=== PATIENT | male | born 1990 | race Caucasian/White ===

== ENCOUNTER 2019-02-10 08:52 | Day surgery (SDC) | payer OTHER ==
[2019-02-10] VITALS (12 sets, daily range): BP systolic 125–145; BP diastolic 66–86; PULSE 69–100; RESP 11–43; Ht 180.3 cm; Wt 78.1 kg
[~2019-02-10] VITALS: Ht 180.3 cm; Wt 78.1 kg
--- NOTE | 2019-02-10 13:36 | PREAC ---
Date/Time of Note Date/Time of Note DATE: 02/10/19 TIME: 13:35 Anesthesia Eval and Record Evaluation Time Pre-Procedure Interview DATE: 02/10/19 TIME: 13:35 Age 28 Sex male NPO: 8 hrs Preoperative diagnosis roght inguinal hernia Planned procedure lap r ingunal hernia repair with mesh Past Medical History Past Medical History: None Surgery & Anesthesia Issues No known issue Meds Anticoagulation: No Beta Janet within 24 hr: No Reason Beta Janet not given: Pt. not on B-Janet No Active Prescriptions or Reported Meds Meds reviewed: Yes Allergies Coded Allergies: No Known Allergy (Unverified , 02/10/19) Allergies Reviewed: Yes Labs/Studies Labs Reviewed: Reviewed by anesthesiologist test: N/A Studies: ECG, CXR (nl) Pre-procedure Exam Last vitals Vital Signs Date Temp Pulse Resp B/P (MAP) Pulse Ox O2 O2 Flow FiO2 Time Delivery Rate 02/10/19 98.6 69 16 133/86 100 Room Air 10:45 (102) Airway: Adequate mouth opening Mallampati: Mallampati I Teeth: Normal Lung: Normal Heart: Normal ASA Physical Status ASA physical status: 1 Emergency: None Planned Anesthetic General/MAC: ETT Nerve block: TAP (bilateral) Planned Pain Management Single shot nerve block, Parenteral pain med Pre-operative Attestations Prior to commencing anesthesia and surgery, the patient was re-evaluated, there was verification of: *The patient's identity *The results of appropriate recent lab work and preoperative vital signs *The above evaluation not changing prior to induction *Anesthetic plan, risk benefits, alternative and complications discussed with patient/family; questions answered; patient/family understands, accepts and wishes to proceed. EDUARDO FERNANDEZ MD Feb 10, 2019 13:36
[2019-02-10] MEDS ORDERED: MIDAZOLAM 1 MG/ML 2 ML INJ ONE (13:45)
[2019-02-10] MEDS ORDERED: ROPIVACAINE 0.5 % 30 ML VIAL ONE (13:45)
[2019-02-10] MEDS ORDERED: PROPOFOL 0 ML ONE (13:45)
[2019-02-10] MEDS ORDERED: ROCURONIUM 50 MG INJ ONE ×3 (13:45→15:07)
[2019-02-10] MEDS ORDERED: METOCLOPRAMIDE 10 MG INJ ONE (13:45)
[2019-02-10] MEDS ORDERED: KETOROLAC 30 MG INJ ONE (13:46)
[2019-02-10] MEDS ORDERED: CEFAZOLIN 1 GM INJ ONE (13:48)
[2019-02-10] MEDS ORDERED: FENTAnyl 50 MCG/ML VIAL ONE ×2 (13:48→14:26)
[2019-02-10] MEDS ORDERED: HYDROmorphONE 1 MG/5 ML IV SYRINGE IV PRN ×3 (14:00)
[2019-02-10] MEDS ORDERED: KETOROLAC 30 MG INJ IV PRN (14:00)
[2019-02-10] MEDS ORDERED: DIPHENHYDRAMINE 50 MG INJ IV PRN (14:00)
[2019-02-10] MEDS ORDERED: ONDANSETRON 4 MG INJ IV PRN (14:00)
[2019-02-10] MEDS ORDERED: MEPERIDINE 25 MG INJ IV PRN (14:00)
[2019-02-10] MEDS ORDERED: FENTAnyl 50 MCG/ML VIAL IV PRN ×3 (14:00)
[2019-02-10] MEDS ORDERED: PROPOFOL 20 ML ONE ×2 (14:24→15:07)
[2019-02-10] MEDS ORDERED: ONDANSETRON 4 MG INJ ONE (14:27)
[2019-02-10] MEDS ORDERED: NEOSTIGMINE 10 MG INJ ONE (16:19)
[2019-02-10] MEDS ORDERED: GLYCOPYRROLATE 0.4 MG INJ ONE (16:19)
--- NOTE | 2019-02-10 16:59 | OPR ---
Date/Time of Note Date/Time of Note DATE: 02/10/19 TIME: 16:51 Operative Report Procedure Date: Feb 10, 2019 Preoperative Diagnosis Incarcerated right inguinal hernia Postoperative Diagnosis Dense abdominal adhesions Incarcerated right inguinal hernia Operation/Procedure Performed Laparoscopic lysis of adhesions 01608 Laparoscopic repair of incarcerated inguinal hernia, right, with mesh Removal of R spermatic cord lesion Surgeon see signature line [employer] none Anesthesia Type: general Estimated Blood Loss: 0 - 10 ml's Transfusion none Specimen lipoma of the cord Grafts/Implants none Complications none Pt Condition Post Procedure: stable Disposition: PACU Indications This young man has a right inguinal hernia that has been causing significant pain and discomfort and has been growing in size. He also has had a previous open appendectomy in the right lower quadrant. He was scheduled to undergo a right inguinal hernia repair. When I entered his abdomen and noted dense adhesions between his colon and small bowel against the right lower quadrant due to his previous open right appendectomy and therefore lysis of adhesions had to be carried out as well. Procedure Description Patient was laid supine on the operating room table and Trendelenburg and right side up. Abdomen groin and scrotum were prepped and draped in sterile manner. Timeout was conducted. A 7 cm skin kwan was made at the periumbilical region and thereafter the Veress needle was inserted until 3 clicks were heard in the saline test was reassuring. The abdomen was insufflated to 15 mmHg. The Optiview trocar was then used to enter the abdomen under direct visualization using a 5 mm port with the camera in place. The area of entry was examined and it was confirmed that there was no injury upon entry. Upon entry dense adhesions between the omentum and the small bowel and the colon especially the sigmoid colon were noted to the right lower quadrant where the patient previously had an open appendectomy. 2 additional ports were placed in the left lower quadrant and thereafter lysis of adhesions between the small bowel and the abdominal wall as well as the sigmoid colon and the abdominal wall were carried out for over 30 minutes to free up the area that we had to do our surgery on for the inguinal hernia repair. Once this was done the hernia contents were reduced from the very large right inguinal hernia. Reduction took over 15 minutes as the patient had a significant amount of omentum as well as some colon in the hernia. Once the contents of the hernia were reduced a peritoneal flap was created from the anterior superior iliac spine down toward the pubic tubercle. The spermatic cord including the vas deferens the pampiniform venous plexus as well as the gonadal artery were all identified and kept out of harm's way and thereafter the hernia sac was identified. It was noted to be a rather large hernia sac and it was dissected all the way toward his edge however it had to be transected before his final edge with the use of the LigaSure device and thereafter from the spermatic cord. Once this was completed the dissection was carried down more medially toward the pubic tubercle and then fully exposing Saad's ligament. A large 15 cm Prolene mesh was placed into the abdomen through the periumbilical incision and afterwards the mesh was unrolled and expanded along the area of dissection. The mesh was affixed to the pubic tubercle with secure strap tacks and then spread along the abdominal wall in the groin fully covering the internal and external rings. The mesh as well as accompanying peritoneal flaps were then tacked along the abdominal wall securing the mesh in place and closing the peritoneal defect. The peritoneum was rather matted and had some defects but these were fixed by moving adjacent fatty tissue as well as tissue from within the preperitoneal space into that area to not leave any mesh exposed. The pneumoperitoneum was then evacuated and the skin incision was closed with buried interrupted 4-0 Monocryl sutures. Wet and dry dressings were applied and the incision was covered with Dermabond solution. All instrument sponge and needle counts were correct at the end of the procedure. The patient tolerated the procedure well and was discharged to the recovery suite in stable condition. CASTILLO COLLINS Feb 10, 2019 16:59
--- NOTE | 2019-02-10 19:19 | PAC ---
Date/Time of Note Date/Time of Note DATE: 02/10/19 TIME: 19:19 Post-Anesthesia Notes Post-Anesthesia Note Last documented vital signs Vital Signs Date Temp Pulse Resp B/P (MAP) Pulse Ox O2 O2 Flow FiO2 Time Delivery Rate 02/10/19 99.0 96 11 138/74 98 Room Air 17:28 (95) 02/10/19 99.5 16:38 Activity: WNL Respiratory function: WNL Cardiovascular function: WNL Mental status: Baseline Pain reasonably controlled: Yes Hydration appropriate: Yes Nausea/Vomiting absent: No EDUARDO FERNANDEZ MD Feb 10, 2019 19:19
== END 2019-02-10 18:20 | disposition home or self-care (01) ==
LOC: SDS 08:52
PROVIDERS: ATTEND Surgery Surgical Critical Care
DX: K40.30 Unilateral inguinal hernia, with obstruction, without gangrene, not specified as recurrent (principal)
CPT/HCPCS: 49650; 88304; J0690; J1885; J2175; J2250; J2405; J2710; J2765; J2795; J3010; Z7512; Z7610